=== PATIENT | female | born 1990 | race Caucasian/White ===

== ENCOUNTER 2021-01-18 10:51 | Emergency (ER) | payer MEDICAID ==
[~2021-01-18] VITALS: Ht 157.5 cm; Wt 86.2 kg
[2021-01-18 10:51] VITALS: BP_SYST 131
[2021-01-18] MEDS ORDERED: HYDROcodone/ACETAMIN 10-325 MG TAB PO ONE (11:00)
[2021-01-18] MEDS ORDERED: IBUPROFEN 800 MG TABLET PO ONE (11:00)
[2021-01-18] MEDS ORDERED: IBUP-1969 PO (11:28)
[2021-01-18] MEDS ORDERED: HYDR-3917 PO (11:28)
[2021-01-18 12:07] VITALS: BP_SYST 131
== END 2021-01-18 12:07 | disposition home or self-care (01) ==
LOC: SED 10:51
DX: S82.832A Other fracture of upper and lower end of left fibula, initial encounter for closed fracture (principal); Z79.899 Other long term (current) drug therapy; X50.1XXA Overexertion from prolonged static or awkward postures, initial encounter; Y93.89 Activity, other specified; Y92.89 Other specified places as the place of occurrence of the external cause; Y99.8 Other external cause status
CPT/HCPCS: 99283